=== PATIENT | female | born 1990 | race Caucasian/White ===

== ENCOUNTER 2017-08-05 06:59 | Day surgery (SDC) | payer BC ==
[~2017-08-05 06:59] MED LIST: Lactated Ringers 1,000 ML IV SCH; Lidocaine 2% 5 ML SDV ONE; Midazolam 1 MG/ML 2 ML SDV ONE; Ondansetron 4 MG/2 ML SDV ONE; Phenylephrine 1% 10 MG/ML SDV ONE; Propofol 200 MG/20 ML SDV ONE; Rocuronium 10 MG/ML 10 ML Syringe ONE; cefTRIAXone 1,000 MG in Sodium Chloride 0.9% 50 ML IV ONE; fentaNYL 250 MCG/5 ML SDV ONE
[2017-08-05] MEDS ORDERED: Dexamethasone 4 MG/ML 5 ML MDV ONE (07:00)
[2017-08-05] MEDS ORDERED: Remifentanil 1 MG Vial ONE (07:14)
[2017-08-05] MEDS ORDERED: Oxymetazoline 0.05% Nasal Spray 15 ML Bottle ONE ×2 (07:28→09:38)
[2017-08-05] MEDS ORDERED: EPINEPHrine 1 MG/ML SDV ONE ×2 (07:28→07:50)
[2017-08-05] MEDS ORDERED: Lidocaine 2% with EPINEPHrine 1:100,000 20 ML MDV ONE (07:29)
[2017-08-05] MEDS ORDERED: Lidocaine 1% 20 ML MDV ONE (07:29)
[2017-08-05] MEDS ORDERED: Thrombin (Bovine) 5,000 Unit Kit ONE ×2 (07:29→07:40)
--- NOTE | 2017-08-05 08:04 | PCM.PREANE ---
Preanesthetic Assessment - Anesthesia/Transfusion/Family Hx Anesthesia History: Prior Anesthesia Without Reaction (get for her c section) Transfusion History: No Prior Transfusion(s) - Review of Systems General: No Symptoms Pulmonary: No Symptoms Cardiovascular: No Symptoms Gastrointestinal: No Symptoms Neurological: No Symptoms Other: Reports: None - Physical Assessment NPO Status Date: 08/04/17 NPO Status Time: 23:00 O2 Sat by Pulse Oximetry: 95 Respiratory Rate: 16 Vital Signs: Last Vital Signs Temp 36.7 C 08/05/17 07:00 Pulse 80 08/05/17 07:00 Resp 16 08/05/17 07:00 BP 123/77 08/05/17 07:00 Pulse Ox 95 08/05/17 07:00 Height: 1.63 m Weight: 92.079 kg ASA Class: 1 Mental Status: Alert & Oriented x3 Airway Class: Mallampati = 1 Dentition: Reports: Normal Dentition ROM/Head Extension: Full Lungs: Clear to Auscultation, Normal Respiratory Effort Cardiovascular: Regular Rate, Regular Rhythm - Lab Values: Laboratory Last Values Urine HCG, Qual NEGATIVE (NEGATIVE) 08/05/17 07:15 - Allergies Allergies/Adverse Reactions: Allergies Allergy/AdvReac Type Severity Reaction Status Date / Time No Known Allergies Allergy Verified 07/30/17 11:32 - Anesthesia Plan Pre-Op Medication Ordered: None - Acknowledgements Anesthesia Type Planned: General Anesthesia Pt an Appropriate Candidate for the Planned Anesthesia: Yes Alternatives and Risks of Anesthesia Discussed w Pt/Guardian: Yes Pt/Guardian Understands and Agrees with Anesthesia Plan: Yes PreAnesthesia Questionnaire Other HEENT History: wears glasses/contacts [employer] History: Reports: Psychiatric History: Reports: Depression Endocrine/Metabolic History: Reports: Obesity/BMI 30+ - Past Surgical History Head Surgeries/Procedures: Reports: None Female Surgical History: Reports: Section - SUBSTANCE USE Smoking Status *Q: Never Smoker Recreational Drug Use History: No - HOME MEDS Home Medications: Home Meds buPROPion HCl [Wellbutrin SR] 150 mg PO BID 07/30/17 [History] - CURRENT (IN HOUSE) MEDS Current Meds: Current Medications Lactated Ringer's (Ringers, Lactated) 1,000 mls @ 125 mls/hr IV [facility] Last Admin: 08/05/17 07:43 Dose: 125 mls/hr Discontinued Medications Dexamethasone (Dexamethasone) Confirm Administered Dose 20 mg .ROUTE .ST-MED ONE Stop: 08/05/17 07:01 Epinephrine HCl (Adrenalin) Confirm Administered Dose 3 mg .ROUTE .ST-MED ONE Stop: 08/05/17 07:29 Epinephrine HCl (Adrenalin) Confirm Administered Dose 2 mg .ROUTE .[facility] ONE Stop: 08/05/17 07:51 Fentanyl (Sublimaze) Confirm Administered Dose 250 mcg .ROUTE .[facility]-MED ONE Stop: 08/05/17 06:59 Ceftriaxone Sodium 1,000 mg/ (Sodium Chloride) 50 mls @ 100 mls/hr IV ONETIME ONE Stop: 08/05/17 00:30 Lidocaine (Xylocaine-Mpf 2%) Confirm Administered Dose 5 ml .ROUTE .[facility]-MED ONE Stop: 08/05/17 06:59 Lidocaine HCl (Xylocaine 1%) Confirm Administered Dose 20 ml .ROUTE .[facility]-MED ONE Stop: 08/05/17 07:30 Lidocaine/Epinephrine (Xylocaine 2% With Epinephrine 1:100,000) Confirm Administered Dose 20 ml .ROUTE .[facility]-MED ONE Stop: 08/05/17 07:30 Midazolam HCl (Versed 1 Mg/Ml) Confirm Administered Dose 2 mg .ROUTE .[facility] ONE Stop: 08/05/17 06:59 Ondansetron HCl (Zofran) Confirm Administered Dose 4 mg .ROUTE .ST-MED ONE Stop: 08/05/17 06:59 Oxymetazoline HCl (Afrin Original 0.05% Nasal [place]) Confirm Administered Dose 15 ml .ROUTE .[facility]-MED ONE Stop: 08/05/17 07:29 Phenylephrine HCl ([place]-Synephrine) Confirm Administered Dose 10 mg .ROUTE .[facility]- MED ONE Stop: 08/05/17 07:00 Propofol (Diprivan 20 Ml) Confirm Administered Dose 200 mg .ROUTE .ST-MED ONE Stop: 08/05/17 06:59 Propofol (Diprivan 20 Ml) Confirm Administered Dose 600 mg .ROUTE .ST-MED ONE Stop: 08/05/17 07:00 Remifentanil (Ultiva) Confirm Administered Dose 2 mg .ROUTE .ST-MED ONE Stop: 08/05/17 07:15 Rocuronium [place] (Zemuron) Confirm Administered Dose 100 mg .ROUTE .STK-MED ONE Stop: 08/05/17 06:59 Thrombin (Thrombin-Jmi) Confirm Administered Dose 5,000 unit .ROUTE .STK-MED ONE Stop: 08/05/17 07:30 Thrombin (Thrombin-Jmi) Confirm Administered Dose 5,000 unit .ROUTE .STK-MED ONE Stop: 08/05/17 07:41
--- NOTE | 2017-08-05 09:59 | PCM.HPR ---
H & P Addendum review - H & P Addendum Review Date of Original H & P: 07/26/17 Date Reviewed: 08/05/17 Time Reviewed: 07:55 Patient was Examined: No Changes
[2017-08-05] MEDS ORDERED: Mineral Oil/Petrolatum Ophth Oint 3.5 GM Tube ONE (10:17)
[2017-08-05] MEDS ORDERED: ePHEDrine 50 MG/ML SDV ONE (10:29)
[2017-08-05] MEDS ORDERED: Glycopyrrolate 0.2 MG/ML SDV ONE (10:55)
[2017-08-05] MEDS ORDERED: fentaNYL 100 MCG/2 ML SDV IVPUSH PRN (11:26)
[2017-08-05] MEDS ORDERED: Acetaminophen 325 MG Tab PO PRN (12:29)
[2017-08-05] MEDS ORDERED: Ibuprofen 400 MG Tab PO PRN (12:29)
--- NOTE | 2017-08-05 12:34 | PCM48HPAN ---
Post Anesthesia Note - EVALUATION WITHIN 48HRS OF ANESTHETIC Vital Signs in Normal Range: Yes Patient Participated in Evaluation: Yes Respiratory Function Stable: Yes Airway Patent: Yes Cardiovascular Function Stable: Yes Hydration Status Stable: Yes Pain Control Satisfactory: Yes Nausea and Vomiting Control Satisfactory: Yes Mental Status Recovered: Yes Resp Rate: 17
--- NOTE | 2017-08-05 12:34 | PCM.POSTAN ---
POST ANESTHESIA ASSESSMENT - MENTAL STATUS Mental Status: Alert, Oriented - RESPIRATORY Respiratory Status: Respiratory Rate WNL, Airway Patent, O2 Saturation Stable - CARDIOVASCULAR CV Status: Pulse Rate WNL, Blood Pressure Stable - GASTROINTESTINAL GI Status: No Symptoms - POST OP HYDRATION Hydration Status: Adequate & Stable
--- NOTE | 2017-08-05 12:52 | PCM.OPNOTE ---
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 Procedure: Endoscopic Left middle meatal antrostomy with removal of polypoid mucosa [ CPT 56847]; Left anterior ethmoidectomy [ 40870]; exploration of Left frontal recess [ 96615]; navigation [ [id number]]] Surgeon: Susan Birmingham MD Anesthesia: General Anesthesiologist: Waylon Monroy CRNA Date of procedure: 08/15/2017 Indications: Left nasal obstruction, Left maxillary sinus mass Findings: Creamy purulence from Left middle meatus; polypoid degeneration of L uncinate process; purulence in L maxillary sinus ++; polypoid mucosa of L maxillary sinus and ethmoid bulla Operation Details: The [employer] navigation system was set up and the Tracker was fixed to the fore head as per protocol. Patient tracking was performed and successful registration was obtained. The left middle turbinate axilla and the head of middle turbinate were infiltrated with 2% lidocaine and 1 in 100,000 epinephrine-a total of 3 ml was used. A cottonoid pledget soaked in 1: 10,000 epinephrine each was placed in the middle meatus, draping over the middle turbinate axilla and one in the region of the sphenoethmoid recess. After appropriate period of decongestion the cottonoid pledgets were removed. The middle turbinate was gently medialized with freer elevator and the 0 rigid nasal endoscope was introduced into the middle meatus. Findings as above; cultures were taken from the MM purulence; a biopsy of the polypoid mucosa was taken with Rosita grande and sent to pathology. The posterior free edge of the uncinate process was identified and medialized with a ball probe. A straight shot tri-cut blade with navigation attached to it was then used to debride the vertical attachment of the uncinate process up to the attachment of Agger nasi cell. A ball probe was then used to identified the left maxillary sinus ostium - purulence was expressed ++ The horizontal part of the uncinate process was then further dissected away with a ball probe and then with a combination of microdebrider and cold steel dissection. The 30 rigid endoscope was used to examine the maxillary ostium - findings as above. The maxillary sinus was thoroughly irrigated with saline. A 0 degree nasal endoscope was used and next the natural ostium of the left bulla ethmoidalis was identified and down fractured with a curette. Further removal of the bulla was performed with a microdebrider blade and anterior ethmoid cells were removed - polypoid mucosa was removed from anterior ethmoid and maxillary sinus with a blakesley harjinder. The frontal recess was explored - minimal polypoid mucosa +; no purulence was seen. At all times the position of instruments was confirmed with [employer] navigation and a combination of straight, 90 and 70 degrees suctions and ostium seekers - all navigated were used as required at appropriate times to assist with identifying landmarks and dissection. Sinuses were irrigated with warm saline. Post nasal space was suctioned clear of blood bilaterally and per orally. [place] dressing was inserted in the middle meatus This completed the procedure and the patient was turned over to the anesthesiologist for recovery. Specimens: Purulence for GS and culture sensitivity; polypoid L uncinate and maxillary sinus mucosa; contents from suction trap IV fluids: 1500 ml Blood loss: 35 ml Blood products: nil Disposition: PACU for recovery Follow up: In 1 week
== END 2017-08-05 13:15 | disposition home or self-care (01) ==
LOC: MW.SDS 06:59
PROVIDERS: ATTEND Otolaryngology
DX: J33.8 Other polyp of sinus (principal); J32.2 Chronic ethmoidal sinusitis; J32.0 Chronic maxillary sinusitis; J34.89 Other specified disorders of nose and nasal sinuses; E66.9 Obesity, unspecified; Z68.34 Body mass index [BMI] 34.0-34.9, adult; Z79.899 Other long term (current) drug therapy
CPT/HCPCS: 31254; 31267; 81025; 87070; 87075; 87205; A9270; J0171; J0696; J1100; J2250; J2370; J2405; J3010; J7050; J7120; J2704